=== PATIENT | male | born 1965 | race Two or more races ===

== ENCOUNTER 2019-10-03 11:04 | Emergency (ER) | payer BC, OTHER ==
[~2019-10-03] VITALS: Ht 182.9 cm; Wt 88.5 kg
--- NOTE | 2019-10-03 11:10 | NUR ---
ambulatory to er bed 18, sent by pmd for evaluation. pt states still having sob and fever. pt tested positive for covid19 11 days ago. 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 placed on monitor. awaiting md weinberg
--- NOTE | 2019-10-03 11:32 | NUR ---
dr gaitan at bedside for eval.
--- NOTE | 2019-10-03 11:41 | NUR ---
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
[2019-10-03 11:53] LABS: BASOPHILS % (AUTO) 0.5 % (0.0-2.0); EOSINOPHILS % (AUTO) 0.1 % (0.0-6.0); HEMATOCRIT 38 % (39-51); HEMOGLOBIN 12.8 g/dL (13.5-17.5); LYMPHOCYTES # (AUTO) 0.7 /CMM (0.8-4.8); LYMPHOCYTES % (AUTO) 14.7 % (20.0-44.0); MEAN CORPUSCULAR HGB CONC 34 g/dl (31.0-36.0); MEAN CORPUSCULAR VOLUME 89 fL (80-96); MONOCYTES # (AUTO) 0.5 /CMM (0.1-1.30); MONOCYTES % (AUTO) 10.4 % (2.0-12.0); NEUTROPHILS # (AUTO) 3.4 /CMM (1.8-8.9); NEUTROPHILS % (AUTO) 74.3 % (43.0-81.0); PLATELET COUNT (AUTO) 224 /CMM (150-450); RED BLOOD CELL COUNT(AUTO) 4.23 MIL/uL (4.5-6.0); WHITE BLOOD COUNT (AUTO) 4.5 K/uL (4.3-11.0)
[2019-10-03 12:05] LABS: CALCIUM, SERUM 8.9 mg/dL (8.5-10.1); CARBON DIOXIDE 25 mmol/L (21-32); CHLORIDE 99 mmol/L (98-107); CREATININE 0.9 mg/dL (0.6-1.3); GLUCOSE 140 mg/dL (74-106); POTASSIUM 3.7 mmol/L (3.5-5.1); SODIUM SERUM 135 mmol/L (136-145); UREA NITROGEN, BLOOD 11 mg/dL (7-18)
[2019-10-03 12:46] LABS: B-TYPE NATRIURETIC PEPTIDE 82 PG/ML (0-125)
[2019-10-03 13:18] VITALS: BP 132/80
--- NOTE | 2019-10-03 13:18 | NUR ---
Patient discharged to home in stable condition. Written and verbal after care instructions given. Patient verbalizes understanding of instruction.
== END 2019-10-03 13:19 | disposition home or self-care (01) ==
LOC: ER 11:04
DX: U07.1 COVID-19 (principal); R91.8 Other nonspecific abnormal finding of lung field
CPT/HCPCS: 36415; 71045-TC; 80048-TC; 83880; 84484-TC; 85025-TC